=== PATIENT | female | born 1980 | race Caucasian/White ===

== ENCOUNTER 2018-02-20 11:34 | Emergency (ER) | payer SELFPAY ==
[~2018-02-20] VITALS: Ht 175.3 cm; Wt 68.0 kg
[~2018-02-20 11:34] MED LIST: GABA300C3 PO; HYDR50 PO; IBUP600 PO; OXYC5 PO; PERI8.6T PO; PRENTAB72 PO
[2018-02-20 11:43] VITALS: BP 115/62; PULSE 76; RESP 18; TEMP 98.4; O2SAT 97
--- NOTE | 2018-02-20 11:49 | PD ---
HPI Chief Complaint: Musculoskeletal Complaint Time Seen by Provider: 11:47 Travel History International Travel<30 days: No Contact w/Intl Traveler<30days: No Traveled to known affect area: No History of Present Illness HPI Patient comes in complaining of noted swelling to her bilateral hands and feet over the past 2 weeks. Patient denies any associated fever, rash, shortness of breath, palpitations, any redness or streaks noted on her extremities. No alleviating or aggravating factors. States allergy to Tylenol caffeine and hydrocodone Past medical history significant for floaters, migraine, mesenteric artery syndrome, with 3 abortions/miscarriages, pyelonephritis, depression, has abused Xanax and has snorted Roxicodone in the past PFSH Past Medical History Arthritis: Yes (SINCE AGE 12/SPINE) Depression: Yes (POSSIBLE PSOT DEPRESSION) Diminished Hearing: No Gastrointestinal Disorders: Yes (SYSTEMIC MESENTERIC ARTERY SYNDROME) Genitourinary: Yes (POLYNEPHRITIS) Psychiatric: Yes (DEPRESSION) Migraines: Yes ( TEENAGER) : 5 Para: 2 : 3 Social History Alcohol Use: No Tobacco Use: Yes Substance Use: Yes (STATES SHE SNORTS ROXICODONE, ABUSES XANAX) Allergies-Medications (Allergen,Severity, Reaction): Coded Allergies: acetaminophen (Unverified Allergy, Severe, ITCHING, 02/20/18) hydrocodone (Unverified Allergy, Severe, ITCHING, 02/20/18) caffeine (Unverified Adverse Reaction, Severe, CONSTIPATION, 02/20/18) Reported Meds & Prescriptions Reported Meds & Active Scripts Active Reported Dilaudid (Hydromorphone HCl) 8 Mg Tab 8 Mg PO Q6H PRN Naproxen Sodium ER 24 HR (Naproxen Sodium) 500 Mg Tab 500 Mg PO DAILY Review of Systems General / Constitutional: No: Fever Eyes: No: Visual changes HENT: No: Headaches Cardiovascular: No: Chest Pain or Discomfort Respiratory: No: Shortness of Breath Gastrointestinal: No: Abdominal Pain Genitourinary: No: Dysuria Musculoskeletal: No: Pain Skin: No Rash Neurologic: No: Weakness Psychiatric: No: Depression Endocrine: No: Polydipsia Hematologic/Lymphatic: No: Easy Bruising Physical Exam Narrative GENERAL: SKIN: Warm and dry. HEAD: Atraumatic. Normocephalic. EYES: Pupils equal and round. No scleral icterus. No injection or drainage. ENT: No nasal bleeding or discharge. Mucous membranes pink and moist. NECK: Trachea midline. No JVD. CARDIOVASCULAR: Regular rate and rhythm. RESPIRATORY: No accessory muscle use. Clear to auscultation. Breath sounds equal bilaterally. GASTROINTESTINAL: Abdomen soft, non-tender, nondistended. Hepatic and splenic margins not palpable. MUSCULOSKELETAL: Extremities without clubbing, cyanosis, or edema. No obvious deformities. Minimally pitting edematous to bilateral hands and feet NEUROLOGICAL: Awake and alert. No obvious cranial nerve deficits. Motor grossly within normal limits. Five out of 5 muscle strength in the arms and legs. Normal speech. PSYCHIATRIC: Appropriate mood and affect; insight and judgment normal. Data Data Last Documented VS Vital Signs Date Time Temp Pulse Resp B/P (MAP) Pulse Ox O2 Delivery O2 Flow Rate FiO2 02/20/18 12:24 88 18 112/59 (76) 100 Room Air 02/20/18 11:52 98.4 Orders Orders Complete Blood Count With Diff (02/20/18 12:01) Comprehensive Metabolic Panel (02/20/18 12:01) Iv Access Insert/Monitor (02/20/18 12:01) Oximetry (02/20/18 12:01) B-Type Natriuretic Peptide (02/20/18 12:01) Ed Discharge Order (02/20/18 13:34) Labs Laboratory Tests Test 02/20/18 12:20 White Blood Count 10.4 TH/MM3 Red Blood Count 4.78 MIL/MM3 Hemoglobin 15.3 GM/DL Hematocrit 44.8 % Mean Corpuscular Volume 93.6 FL Mean Corpuscular Hemoglobin 31.9 PG Mean Corpuscular Hemoglobin Concent 34.1 % Red Cell Distribution Width 13.4 % Platelet Count 326 TH/MM3 Mean Platelet Volume 9.8 FL Neutrophils (%) (Auto) 71.6 % Lymphocytes (%) (Auto) 17.4 % Monocytes (%) (Auto) 8.0 % Eosinophils (%) (Auto) 2.0 % Basophils (%) (Auto) 1.0 % Neutrophils # (Auto) 7.4 TH/MM3 Lymphocytes # (Auto) 1.8 TH/MM3 Monocytes # (Auto) 0.8 TH/MM3 Eosinophils # (Auto) 0.2 TH/MM3 Basophils # (Auto) 0.1 TH/MM3 CBC Comment DIFF FINAL Differential Comment Blood Urea Nitrogen 10 MG/DL Creatinine 0.73 MG/DL Random Glucose 124 MG/DL Total Protein 8.0 GM/DL Albumin 3.4 GM/DL Calcium Level 8.5 MG/DL Alkaline Phosphatase 93 U/L Aspartate Amino Transf (AST/SGOT) 285 U/L Alanine Aminotransferase (ALT/SGPT) 447 U/L Total Bilirubin 1.0 MG/DL Sodium Level 137 MEQ/L Potassium Level 4.0 MEQ/L Chloride Level 105 MEQ/L Carbon Dioxide Level 22.8 MEQ/L Anion Gap 9 MEQ/L Estimat Glomerular Filtration Rate 89 ML/MIN B-Type Natriuretic Peptide 11 PG/ML MDM Medical Decision Making Medical Screen Exam Complete: Yes Emergency Medical Condition: Yes Medical Record Reviewed: Yes Differential Diagnosis Renal failure versus liver failure versus congestive heart failure versus peripheral edema Narrative Course CBC shows no leukocytosis, no anemia, normal platelet count and no left shift CBCs are all within normal limits, normal liver functions, negative beta natruretic peptide. Normal bilirubin and normal alk phos but with elevated AST ALT suggestive of intrinsic liver disease. AST is 285 ALT is 447. Patient has been referred to [facility] for further referral and workup for this elevation in liver ENZYMES. Diagnosis Primary Impression: Mild peripheral edema Additional Impression: Elevated liver enzymes Referrals: [facility] FOR FURTHER CARE AND REFERRAL OF YOUR LIVER ENZYMES Patient Instructions: General Instructions, Leg Edema (ED), Liver Disease Diet (DC) Disposition: 01 DISCHARGE HOME Condition: Stable Robert Taylor MD February 20, 2018 11:49
[2018-02-20] MEDS ORDERED: DILA8TAB4 PO (11:51)
[2018-02-20] MEDS ORDERED: NAPR-697 PO (11:51)
[2018-02-20 11:52] VITALS: BP 115/62; PULSE 76; RESP 18; TEMP 98.4; O2SAT 97
[2018-02-20 12:24] VITALS: BP 112/59; PULSE 88; RESP 18; O2SAT 100
[2018-02-20 12:37] LABS: AUTOMATED NEUTROPHIL # 7.4 TH/MM3 (1.8-7.7); BASOPHIL # 0.1 TH/MM3 (0-0.2); EOSINOPHIL # 0.2 TH/MM3 (0-0.4); HEMATOCRIT 44.8 % (35.0-46.0); HEMOGLOBIN 15.3 GM/DL (11.6-15.3); LYMPH % 17.4 % (9.0-44.0); LYMPHOCYTE # 1.8 TH/MM3 (1.0-4.8); MEAN CELL VOLUME 93.6 FL (80.0-100.0); MEAN CORPUSCULAR HEMOGLOBIN 31.9 PG (27.0-34.0); MEAN CORPUSCULAR HGB CONC 34.1 % (32.0-36.0); MEAN PLATELET VOLUME 9.8 FL (7.0-11.0); MONOCYTE # 0.8 TH/MM3 (0-0.9); NEUT % 71.6 % (16.0-70.0); PLATELET COUNT 326 TH/MM3 (150-450); RED BLOOD COUNT 4.78 MIL/MM3 (4.00-5.30); RED CELL DISTRIBUTION WIDTH 13.4 % (11.6-17.2); WHITE BLOOD COUNT 10.4 TH/MM3 (4.0-11.0)
[2018-02-20 13:13] LABS: ALKALINE PHOSPHATASE 93 U/L (45-117)
[2018-02-20 13:15] LABS: ALBUMIN 3.4 GM/DL (3.4-5.0); ALT (GPT) 447 U/L (10-53); AST (GOT) 285 U/L (15-37); BICARBONATE 22.8 MEQ/L (21.0-32.0); BLOOD UREA NITROGEN 10 MG/DL (7-18); CALCIUM 8.5 MG/DL (8.5-10.1); CHLORIDE 105 MEQ/L (98-107); CREATININE 0.73 MG/DL (0.50-1.00); GLOMERULAR FILTRATION RATE 89 ML/MIN (>89); GLUCOSE,RANDOM 124 MG/DL (74-106); SODIUM (NA) 137 MEQ/L (136-145)
[2018-02-20 13:49] VITALS: BP 107/66
== END 2018-02-20 14:07 | disposition home or self-care (01) ==
LOC: NEPD 11:34
DX: R60.0 Localized edema (principal); R74.8 Abnormal levels of other serum enzymes; Z72.0 Tobacco use
CPT/HCPCS: 80053; 83880; 85025; 99283